=== PATIENT | male | born 1935 | race American Indian/Alaskan Native ===

== ENCOUNTER 2017-04-29 02:16 | Inpatient (IN) | payer BC, MEDICARE ==
[2017-04-29 03:02] LABS: Basophils % (Auto) 0.4 % (0.0-1.8); Eosinophils # (Auto) 0.1 K/mm3 (0.0-0.4); Eosinophils % (Auto) 1.7 % (0.0-4.3); Hematocrit 34.5 % (35.5-45.6); Hemoglobin 11.5 gm/dl (11.8-15.2); Lymphocytes # (Auto) 1.1 K/mm3 (1.2-5.4); Lymphocytes % (Auto) 16.1 % (13.4-35.0); Mean Corpuscular HGB Conc 33 % (32-34); Mean Corpuscular Hemoglobin 28 pg (28-32); Mean Corpuscular Volume 83 fl (84-94); Monocytes # (Auto) 0.6 K/mm3 (0.0-0.8); Monocytes % (Auto) 9.5 % (0.0-7.3); Platelet Count 195 K/mm3 (140-440); Red Blood Count 4.16 M/mm3 (3.65-5.03); Red Cell Distribution Width 16.6 % (13.2-15.2)
[2017-04-29 03:18] LABS: Calcium 8.6 mg/dL (8.4-10.2)
[2017-04-29] MEDS ORDERED: DUONEB *Not for PRN Use IH ONE ×3 (03:32→04:57)
--- NOTE | 2017-04-29 03:56 | XRay Report ---
FINAL REPORT PROCEDURE: XR CHEST ROUTINE 2V TECHNIQUE: PA and lateral chest radiographs were obtained. CPT 49440 HISTORY: Shortness of breath COMPARISON: No prior studies are available for comparison. FINDINGS: Heart: Normal. Mediastinum/Vessels: Normal. Lungs/Pleural space: Atelectasis bilateral lower lungs. Slight left effusion. Bony thorax: No acute osseous abnormality. Other: IMPRESSION: Atelectasis bilateral lower lungs. Slight left effusion.
[2017-04-29 03:57] LABS: Chol/HDL Ratio 2.11 %
[2017-04-29 06:21] LABS: Creatine Kinase MB 2.2 ng/mL (0.0-4.0)
--- NOTE | 2017-04-29 09:11 | Emergency Department Report ---
ED Shortness of Breath HPI - General Chief Complaint: Dyspnea/Respdistress Stated Complaint: FEET ,LEG SWOLLEN Time Seen by Provider: 04/29/17 06:19 Source: patient Mode of arrival: Ambulatory Limitations: Physical Limitation - History of Present Illness Initial Comments: pt. was recently discharged 2 weeks ago from [facility] in [place] where he was admitted for a week for pneumonia,hypokalemia also was found to have an abdominal aneurysm which they told family that it was not big enough to be operated.pt. also complaining of bilateral leg swelling on both legs all the way to jorge l [place] Complaint: shortness of breath Onset/Timin (day) Radiation: other (none) Severity: moderate Consistency: intermittent Improves With: rest Worsens With: exertion Context: recent illness Associated Symptoms: other (bilateral pedal edema) - Related Data Home Medications Medication Instructions Recorded Confirmed Last Taken Atenolol [Tenormin] 25 mg PO DAILY 04/29/17 04/29/17 Unknown amLODIPine [Norvasc] 5 mg PO DAILY 04/29/17 04/29/17 Unknown Allergies Allergy/AdvReac Type Severity Reaction Status Date / Time No Known Allergies Allergy Verified 04/29/17 04:49 ED Review of Systems ROS: Stated complaint: FEET ,LEG SWOLLEN Other details as noted in HPI Comment: All other systems reviewed and negative ED Past Medical Hx - Past Medical History Hx Hypertension: Yes Additional medical history: Hearing Loss, Hypokalemia - Surgical History Past Surgical History?: Yes Additional Surgical History: Bilateral Cataract Surgery - Social History Smoking Status: Never Smoker Substance Use Type: None - Medications Home Medications: Home Medications Medication Instructions Recorded Confirmed Last Taken Type Atenolol [Tenormin] 25 mg PO DAILY 04/29/17 04/29/17 Unknown History amLODIPine [Norvasc] 5 mg PO DAILY 04/29/17 04/29/17 Unknown History ED Physical Exam - General Limitations: Physical Limitation General appearance: alert, in no apparent distress - Head Head exam: Present: atraumatic, normocephalic - Eye Eye exam: Present: normal appearance - ENT ENT exam: Present: mucous membranes moist - Neck Neck exam: Present: normal inspection - Respiratory Respiratory exam: Present: normal lung sounds bilaterally. Absent: respiratory distress - Cardiovascular Cardiovascular Exam: Present: regular rate, normal rhythm, other (bilateral pedal edema). Absent: systolic murmur, diastolic murmur, rubs, gallop - GI/Abdominal GI/Abdominal exam: Present: soft, normal bowel sounds. Absent: tenderness - Rectal Rectal exam: Present: deferred - Extremities Exam Extremities exam: Present: normal inspection, pedal edema (bilateral) - Back Exam Back exam: Present: normal inspection, full ROM - Neurological Exam Neurological exam: Present: alert, oriented X3 - Psychiatric Psychiatric exam: Present: normal affect, normal mood - Skin Skin exam: Present: warm, dry, intact, normal color. Absent: rash ED Course Vital Signs 04/29/17 04/29/17 04/29/17 02:45 04:28 04:37 Temperature 97.8 F 97.7 F Pulse Rate 64 65 Pulse Rate [ Right Middle Lobe] Respiratory 20 20 Rate Respiratory Rate [Right Middle Lobe] Blood Pressure 158/99 Blood Pressure 154/102 [Right] O2 Sat by Pulse 96 94 94 Oximetry 04/29/17 04/29/17 04/29/17 04:59 05:29 06:00 Temperature Pulse Rate 66 Pulse Rate [ 82 84 Right Middle Lobe] Respiratory 20 Rate Respiratory 18 18 Rate [Right Middle Lobe] Blood Pressure Blood Pressure 147/91 [Right] O2 Sat by Pulse 95 Oximetry 04/29/17 04/29/17 07:45 08:15 Temperature Pulse Rate 68 62 Pulse Rate [ Right Middle Lobe] Respiratory 16 21 Rate Respiratory Rate [Right Middle Lobe] Blood Pressure 144/95 147/88 Blood Pressure [Right] O2 Sat by Pulse 94 95 Oximetry ED Medical Decision Making - Lab Data Result diagrams: 04/29/17 02:55 04/29/17 02:55 - EKG Data -: EKG Interpreted by [facility] EKG shows normal: sinus rhythm, axis (normal), intervals (normal), QRS complexes (q waves in V2 ), ST-T waves (NON SPECIFIC ST AND T WAVE CHANGES) Rate: normal (RATE OF 65) - Radiology Data Radiology results: report reviewed Critical care attestation.: If time is entered above; I have spent that time in minutes in the direct care of this critically ill patient, excluding procedure time. ED Disposition Clinical Impression: Acute respiratory distress, NSTEMI (non-ST elevated myocardial infarction) Condition: Stable Referrals: PRIMARY CARE, [Primary Care Provider] - 3-5 Days
[2017-04-29] MEDS ORDERED: BABY ASPIRIN PO ONE (09:28)
[2017-04-29] MEDS ORDERED: PLAVIX PO ONE (09:30)
[2017-04-29] MEDS ORDERED: LASIX IV ONE (09:30)
[2017-04-29] MEDS ORDERED: LOVENOX SUB-Q ONE (09:30)
[2017-04-29] MEDS ORDERED: NITROSTAT SL PRN (10:00)
[2017-04-29] MEDS ORDERED: ZOFRAN IV PRN (10:00)
[2017-04-29] MEDS: LOPRESSOR PO SCH ×2 (11:30→23:23)
[2017-04-29] MEDS: PROTONIX PO SCH (11:30)
[2017-04-29] MEDS: ASPIRIN PO SCH (11:30)
--- NOTE | 2017-04-29 11:49 | History and Physical Report ---
History of Present Illness Date of examination: 04/29/17 Date of admission: 04/29/17 09:38 Chief complaint: SOB with Leg swelling, history from Daughter Radha at bedside because pt is deaf History of present illness: The patient is a 80-year-old man with a history of acquired deafness, chronic kidney disease stage III (he has seen a mounter in the past), chronic hypokalemia and hypertension from home alone who presents with acute onset of severe constant shortness of breath that started yesterday associated with bilateral leg swelling which is new. Patient is deaf and he does not talk. History is from his daughter Radha. Her that he was having problems breathing with minimal activity this morning. He did not report of any chest pains, cough , fevers, nausea or vomiting. He does have bilateral leg swelling that started within the week. He was just discharged from [facility] 2 weeks ago for treatment of pneumonia, TIA, hypokalemia. He was found to have a abdominal aneurysm that was "5" per daughter, which they told here it was not enough to operate. They told her they operate when the aneurysm size is 5.5, they recommended close monitoring. At [facility] also known as [facility] patient did have a CAT scan of the chest. I have requested old records be obtained so that test will not be duplicated. Past medical history: As HPI, 5 cm AA, he denies CHF, he denies diabetes Past surgical history: Bilateral cataracts removal Social history: nonsmoker, no alcohol or drug abuse. only has one child living Radha at bedside, full code Family history: Positive for diabetes and hypertension throughout the family ROS: Constitutional: denies: fever ENT: denies: throat or neck pain Respiratory:+ shortness of breath Cardiovascular: denies: chest pain Endocrine: denies unexplained weight loss or gain Gastrointestinal: denies: abdominal pain, nausea Genitourinary: denies: dysuria Rectal: denies no incontinence, no bleeding, no itching, no discharge Musculoskeletal: denies swelling, myaglia, muscle weakness Skin: denies: rash Neurological: denies: headache Hematological/Lymphatic: denies: easy bleeding or easy bruising Allergic/Immunologic: no urticaria, no allergic rhinitis, no anaphylaxis Psych: denies sadness or hopelessness, SI/HI Medications and Allergies Allergies Allergy/AdvReac Type Severity Reaction Status Date / Time No Known Allergies Allergy Verified 04/29/17 04:49 Home Medications Medication Instructions Recorded Confirmed Last Taken Type Atenolol [Tenormin] 25 mg PO DAILY 04/29/17 04/29/17 Unknown History amLODIPine [Norvasc] 5 mg PO DAILY 04/29/17 04/29/17 Unknown History Active Meds: Active Medications Acetaminophen (Tylenol) 650 mg PO Q6H PRN PRN Reason: Non Cardiac Pain or Temp>100.5 Aspirin (Aspirin) 325 mg PO QDAY [facility] Last Admin: 04/29/17 11:30 Dose: Not Given Atorvastatin Calcium (Lipitor) 20 mg PO QHS [facility] Metoprolol Tartrate (Lopressor) 25 mg PO BID [facility] Last Admin: 04/29/17 11:30 Dose: 25 mg Nitroglycerin (Nitrostat) 0.4 mg SL .Q5MIN PRN PRN Reason: Chest Pain Ondansetron HCl (Zofran) 4 mg IV Q4H PRN PRN Reason: Nausea And Vomiting Pantoprazole Sodium (Protonix) 40 mg PO QDAY [facility] Last Admin: 04/29/17 11:30 Dose: 40 mg Exam - Physical Exam Narrative exam: GEN: WDWN, NAD, AWAKE, ALERT, appears ORIENTATED, follows commands HEENT: NCAT, EOMI, PERRL, OP Clear NECK: supple, no adenopathy, no thyromegaly, + JVD CVS/HEART: irregular irregular, NORMAL S1S2, pulses present bilaterally CHEST/LUNGS: bilateral crackles Symmetrical chest expansion, good air entry bilaterally GI/Abdomen: soft, NTND, good bowel sounds, no guarding or rebound /Bladder: no suprapubic tenderness, no CVA or paraspinal tenderness EXT/Skin: 2+ pitting ble edema, no obvious rash MSK: FROM x 4 Neuro: CN 2-12 grossly intact except hearing loss bilateral, no new focal deficits Psych: calm - Constitutional Vitals: Temp Pulse Resp BP Pulse Ox 97.7 F 62 21 147/88 95 04/29/17 04:28 04/29/17 08:15 04/29/17 08:15 04/29/17 08:15 04/29/17 08:15 Results - Labs CBC & Chem 7: 04/29/17 02:55 04/29/17 02:55 Labs: Abnormal lab results 04/29/1718 04/29/17 Range/Units 02:55 02:55 05:52 Hgb 11.5 L (11.8-15.2) gm/dl Hct 34.5 L (35.5-45.6) % MCV 83 L (84-94) fl RDW 16.6 H (13.2-15.2) % [place] % (Auto) 9.5 H (0.0-7.3) % Lymph # 1.1 L (1.2-5.4) K/mm3 Seg Neutrophils % 72.3 H (40.0-70.0) % D-Dimer (0-234) ng/mlDDU Total Creatine Kinase (55-170) units/L CK-MB (CK-2) Rel Index (0-4) Troponin T 0.051 H 0.042 H (0.00-0.029) ng/mL NT-Pro-B Natriuret Pep (0-900) pg/mL HDL Cholesterol 60 H (40-59) mg/dL 04/29/1718 04/29/17 Range/Units 05:52 09:18 09:18 Hgb (11.8-15.2) gm/dl Hct (35.5-45.6) % MCV (84-94) fl RDW (13.2-15.2) % [place] % (Auto) (0.0-7.3) % Lymph # (1.2-5.4) K/mm3 Seg Neutrophils % (40.0-70.0) % D-Dimer 823.74 H (0-234) ng/mlDDU Total Creatine Kinase 48 L (55-170) units/L CK-MB (CK-2) Rel Index 4.1 H (0-4) Troponin T 0.032 H D (0.00-0.029) ng/mL NT-Pro-B Natriuret Pep 8283 H (0-900) pg/mL HDL Cholesterol (40-59) mg/dL Assessment and Plan Patient is a 80-year-old man with a history of 5cm AAA, acquired deafness, chronic kidney disease stage III (he has seen a mounter in the past), chronic hypokalemia and hypertension who presents to [facility] ED with sob and leg swelling. Admitted for new onset CHF. Recently discharge from [facility] ~2weeks ago for pna/tia/hypokalemia. 2vCXR reported as bilateral atelectasis at bases, slight left pleural effusion -Acute decompensated heart failure, new onset combined: Treat with IV Lasix, potassium, order echocardiogram -Elevated troponin: Consulted cardiology, treat with aspirin statins beta jose and nitroglycerin -Elevated d-dimer: Ordered VQ scan if his creatinine is 1.5, spoke with his nurse to obtain records from [facility], questionable recent CTA -Microcytic anemia: Patient needs colonoscopy if none recently -Suspect chronic kidney disease stage III without a known baseline, for visit here: needs prior records, repeat bmp am -Bilateral atelectasis: Treat with incentive spirometer -DVT GI prophylaxis reviewed 2D ECHO, v/q (delay stress test because on NM)
--- NOTE | 2017-04-29 13:26 | Nuclear Medicine Report ---
LUNG SCAN, VENTILATION AND PERFUSION: History: Chest pain. Findings: Inhalation of Xenon gas demonstrates a normal distribution of the activity throughout both lungs. The wash out phases show no focal retention of activity. After injection of Technetium 99m macroaggregated albumin gamma camera imaging of the lungs in multiple projections demonstrates normal pulmonary contours with a homogeneous distribution of activity. No focal areas of perfusion deficiency are identified. IMPRESSION: Normal study.
[2017-04-29] MEDS: LASIX IV SCH (18:39)
[2017-04-29] MEDS: K-DUR PO SCH (23:24)
[2017-04-30] MEDS: COLACE PO SCH ×3 (04:05→21:56)
[2017-04-30] MEDS: LASIX IV SCH ×3 (04:48→18:09)
[2017-04-30] MEDS: PROTONIX PO SCH (10:34)
[2017-04-30] MEDS: K-DUR PO SCH ×2 (10:34→22:02)
[2017-04-30] MEDS: ASPIRIN PO SCH (10:34)
[2017-04-30] MEDS: LOPRESSOR PO SCH ×2 (10:35→21:56)
--- NOTE | 2017-04-30 12:40 | Consultation ---
History of Present Illness Consult date: 04/30/17 Requesting physician: ALEJANDRO WALKER Consult reason: congestive heart failure, elevated troponin History of present illness: Pt is a 72 YO male with no known significant past medical history. Pt is deaf. Pt is previously unknown to our practice. He presented with c/o progressively worsening BLE edema and SOB for several days prior to arrival. Pt reports that he recently discharged 2 weeks ago from [facility] in [place] where he was admitted for a week for pneumonia, hypokalemia and was also found to have an abdominal aneurysm which they told family that it was not big enough to require surgical intervention. Pt denies chest pain, palpitations, n/v, diaphoresis, dizziness or syncope. Echo done 04/29/2017 shows EF 35-40%, mod LVH, impaired relaxation, LA mild to mod dilated, mild to mod AR, mod to severe MR, mild to mod TR, mod pulm HTN with RVSP 63mmHg. Troponins are minimally elevated and trending down. DDimer was elevated, V/Q scan normal. Past History Past Medical History: other (deaf) Social history: , Lives alone. denies: smoking, alcohol abuse, prescription drug abuse Medications and Allergies Allergies Allergy/AdvReac Type Severity Reaction Status Date / Time No Known Allergies Allergy Verified 04/29/17 04:49 Home Medications Medication Instructions Recorded Confirmed Last Taken Type Atenolol [Tenormin] 25 mg PO DAILY 04/29/17 04/29/17 Unknown History amLODIPine [Norvasc] 5 mg PO DAILY 04/29/17 04/29/17 Unknown History Active Meds: Active Medications Acetaminophen (Tylenol) 650 mg PO Q6H PRN PRN Reason: Non Cardiac Pain or Temp>100.5 Aspirin (Aspirin) 325 mg PO QDAY [facility] Last Admin: 04/30/17 10:34 Dose: 325 mg Atorvastatin Calcium (Lipitor) 20 mg PO QHS [facility] Last Admin: 04/29/17 23:24 Dose: 20 mg Docusate Sodium (Colace) 100 mg PO BID [facility] Last Admin: 04/30/17 10:35 Dose: 100 mg Furosemide (Lasix) 20 mg IV 0600,1800 [facility] Last Admin: 04/30/17 05:10 Dose: Not Given Metoprolol Tartrate (Lopressor) 25 mg PO BID [facility] Last Admin: 04/30/17 10:35 Dose: 25 mg Nitroglycerin (Nitrostat) 0.4 mg SL .Q5MIN PRN PRN Reason: Chest Pain Ondansetron HCl (Zofran) 4 mg IV Q4H PRN PRN Reason: Nausea And Vomiting Pantoprazole Sodium (Protonix) 40 mg PO QDAY [facility] Last Admin: 04/30/17 10:34 Dose: 40 mg Potassium Chloride (K-Dur) 20 meq PO BID [facility] Last Admin: 04/30/17 10:34 Dose: 20 meq Review of Systems Constitutional: no fever, no chills, no sweats Ears, nose, mouth and throat: no ear pain, no nose pain, no sinus pressure, no sinus pain Cardiovascular: edema, shortness of breath, dyspnea on exertion, leg edema, no chest pain, no palpitations, no rapid/irregular heart beat, no syncope, no lightheadedness Respiratory: shortness of breath, dyspnea on exertion, no cough, no congestion, no wheezing, no pain on inspiration Gastrointestinal: no abdominal pain, no nausea, no vomiting, no diarrhea, no constipation, no change in bowel habits Genitourinary Male: no dysuria, no hematuria, no flank pain, no discharge, no urinary frequency, no urinary hesitancy Musculoskeletal: no neck stiffness, no neck pain, no shooting arm pain, no arm numbness/tingling, no low back pain, no shooting leg pain, no leg numbness/ tingling, no redness of joints Integumentary: no rash, no pruritis, no redness, no sores, no wounds Neurological: no head injury, no paralysis, no weakness, no seizures, no syncope Psychiatric: no anxiety Endocrine: no cold intolerance, no heat intolerance Hematologic/Lymphatic: no easy bruising, no easy bleeding, no lymphadenopathy Allergic/Immunologic: no urticaria, no wheezing, no persistent infections Physical Examination Vital Signs Temp Pulse BP Pulse Ox 97.8 F 64 158/99 96 04/29/17 02:45 04/29/17 02:45 04/29/17 02:45 04/29/17 02:45 General appearance: no acute distress HEENT: Positive: PERRL, Normocephaly, Mucus Membranes Moist Neck: Positive: neck supple, trachea midline Cardiac: Positive: Reg Rate and Rhythm, S1/S2 Lungs: Positive: Rales (fine bibasilar) Neuro: Positive: Grossly Intact Abdomen: Positive: Soft. Negative: Tender Skin: Positive: Clear. 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 Initiate lisinopril. Plan for lexiscan MPI stress test in AM to r/o ischemic CMP. NPO after MN. Initiate lovenox for DVT prophylaxis. Assessment and plan reviewed with pt at bedside. The patient has been seen in conjunction with Dr. Coulter who agrees with the assessment and plan of care.
--- NOTE | 2017-04-30 13:52 | Progress Note ---
Assessment and Plan Assessment and plan: Patient is a 80-year-old man with a history of 5cm AAA, acquired deafness, chronic kidney disease stage III (he has seen a oncology radiation physician in the past), chronic hypokalemia and hypertension who presents to [facility] ED with sob and leg swelling. Admitted for new onset CHF. Recently discharge from [facility] ~2weeks ago for pna/tia/hypokalemia. 2vCXR reported as bilateral atelectasis at bases, slight left pleural effusion -Acute decompensated heart failure, new onset combined (confirmed by ECHO) suspect acute on chronic if not ischemic: Treat with IV Lasix, potassium, 2D echocardiogram reviewed -Elevated troponin: Consulted cardiology, treat with aspirin statins beta jose and nitroglycerin -Elevated d-dimer: Ordered VQ scan if his creatinine is 1.5, spoke with his nurse to obtain records from [facility], questionable recent CTA -Microcytic anemia: Patient needs colonoscopy if none recently -Suspect chronic kidney disease stage III without a known baseline, for visit here: needs prior records, repeat bmp am -Bilateral atelectasis: Treat with incentive spirometer -DVT GI prophylaxis reviewed 2D ECHO, v/q (stress test was delayed because because on NM for v/q scan) Lasix is really helping and he is diuresis well. Recheck renal function in am Disposition: stress test am and if negative, cleared by cardiology and renal function stable then d/c tomorrow History Interval history: Patient was seen and examined. Follow-up on current diagnosis of weakness. Overnight uneventful. Patient denies any chest pain, shortness breath, nausea/ vomiting or severe headaches. Imaging, nursing note, chart, labs and old chart reviewed. Discussed with patient. He uses clipboard to communicate. He c/o constipation. Hospitalist Physical - Physical exam Narrative exam: GEN: WDWN, NAD, AWAKE, ALERT, appears ORIENTATED, follows commands HEENT: NCAT, EOMI, PERRL, OP Clear NECK: supple, no adenopathy, no thyromegaly, + JVD CVS/HEART: irregular irregular, NORMAL S1S2, pulses present bilaterally CHEST/LUNGS: bilateral crackles Symmetrical chest expansion, good air entry bilaterally GI/Abdomen: soft, NTND, good bowel sounds, no guarding or rebound /Bladder: no suprapubic tenderness, no CVA or paraspinal tenderness EXT/Skin: 2+ pitting ble edema, no obvious rash MSK: FROM x 4 Neuro: CN 2-12 grossly intact except hearing loss bilateral, no new focal deficits Psych: calm - Constitutional Vitals: Temp Pulse Resp BP Pulse Ox 98.2 F 78 18 157/95 96 04/30/17 08:58 04/30/17 10:35 04/30/17 08:58 04/30/17 10:35 04/30/17 08:58 General appearance: Present: no acute distress Results - Labs CBC & Chem 7: 04/29/17 02:55 04/29/17 02:55 Labs: Laboratory Last Values WBC 6.9 K/mm3 (4.5-11.0) 04/29/17 02:55 RBC 4.16 M/mm3 (3.65-5.03) 04/29/17 02:55 Hgb 11.5 gm/dl (11.8-15.2) L 04/29/17 02:55 Hct 34.5 % (35.5-45.6) L 04/29/17 02:55 MCV 83 fl (84-94) L 04/29/17 02:55 MCH 28 pg (28-32) 04/29/17 02:55 MCHC 33 % (32-34) 04/29/17 02:55 RDW 16.6 % (13.2-15.2) H 04/29/17 02:55 Plt Count 195 K/mm3 (140-440) 04/29/17 02:55 Lymph % (Auto) 16.1 % (13.4-35.0) 04/29/17 02:55 [place] % (Auto) 9.5 % (0.0-7.3) H 04/29/17 02:55 Eos % (Auto) 1.7 % (0.0-4.3) 04/29/17 02:55 Baso % (Auto) 0.4 % (0.0-1.8) 04/29/17 02:55 Lymph # 1.1 K/mm3 (1.2-5.4) L 04/29/17 02:55 [place] # 0.6 K/mm3 (0.0-0.8) 04/29/17 02:55 Eos # 0.1 K/mm3 (0.0-0.4) 04/29/17 02:55 Baso # 0.0 K/mm3 (0.0-0.1) 04/29/17 02:55 Seg Neutrophils % 72.3 % (40.0-70.0) H 04/29/17 02:55 Seg Neutrophils # 5.0 K/mm3 (1.8-7.7) 04/29/17 02:55 D-Dimer 823.74 ng/mlDDU (0-234) H 04/29/17 09:18 Sodium 142 mmol/L (137-145) 04/29/17 02:55 Potassium 3.8 mmol/L (3.6-5.0) 04/29/17 02:55 Chloride 102.9 mmol/L (98-107) 04/29/17 02:55 Carbon Dioxide 25 mmol/L (22-30) 04/29/17 02:55 Anion Gap 18 mmol/L 04/29/17 02:55 BUN 19 mg/dL (9-20) 04/29/17 02:55 Creatinine 1.5 mg/dL (0.8-1.5) 04/29/17 02:55 Estimated GFR 45 ml/min 04/29/17 02:55 BUN/Creatinine Ratio 13 % 04/29/17 02:55 Glucose 92 mg/dL (75-100) 04/29/17 02:55 Calcium 8.6 mg/dL (8.4-10.2) 04/29/17 02:55 Total Creatine Kinase 48 units/L (55-170) L 04/29/17 09:18 CK-MB (CK-2) 2.0 ng/mL (0.0-4.0) 04/29/17 09:18 CK-MB (CK-2) Rel Index 4.1 (0-4) H 04/29/17 09:18 Troponin T 0.032 ng/mL (0.00-0.029) H D 04/29/17 09:18 NT-Pro-B Natriuret Pep 8283 pg/mL (0-900) H 04/29/17 05:52 Triglycerides 73 mg/dL (2-149) 04/29/17 02:55 Cholesterol 127 mg/dL (50-199) 04/29/17 02:55 LDL Cholesterol Direct 68 mg/dL (50-130) 04/29/17 02:55 HDL Cholesterol 60 mg/dL (40-59) H 04/29/17 02:55 Cholesterol/HDL Ratio 2.11 % 04/29/17 02:55
[2017-04-30] MEDS ORDERED: DULCOLAX PR ONE (14:00)
[2017-04-30] MEDS: MIRALAX 3350 PO SCH (16:47)
[2017-04-30] MEDS: ZESTRIL PO SCH (16:53)
[2017-04-30] MEDS: LOVENOX SUB-Q SCH (21:57)
[2017-05-01] MEDS: LASIX IV SCH ×2 (05:36→17:26)
[2017-05-01 05:49] LABS: Hematocrit 34.6 % (35.5-45.6); Hemoglobin 11.7 gm/dl (11.8-15.2); Mean Corpuscular HGB Conc 34 % (32-34); Mean Corpuscular Hemoglobin 28 pg (28-32); Mean Corpuscular Volume 84 fl (84-94); Platelet Count 187 K/mm3 (140-440); Red Blood Count 4.15 M/mm3 (3.65-5.03); Red Cell Distribution Width 16.7 % (13.2-15.2)
[2017-05-01 06:21] LABS: BUN/Creatinine Ratio 12; Blood Urea Nitrogen 14 mg/dL (9-20); Calcium 8.5 mg/dL (8.4-10.2); Hemolysis Index 2
[2017-05-01] MEDS ORDERED: LEXISCAN IV ONE (08:24)
--- NOTE | 2017-05-01 11:20 | Progress Note ---
Assessment and Plan acute systolic heart failure acute respiratory failure nstemit type 2 aaa 5.0 cm htn chol rec: increase lopressor 50mg bid, increase lisinopril 10mg bid, cont iv lasix today, check am labs, possible discharge in am. tried to call daughter phone busy. , infomed the nurse to inform daughter. Subjective Date of service: 05/01/17 Principal diagnosis: sob Interval history: pt has no sob today Objective Vital Signs Temp Pulse Resp BP BP Pulse Ox 05/01/17 08:51 75 162/97 05/01/17 08:50 78 163/100 05/01/17 08:49 78 170/100 05/01/17 08:48 80 152/98 05/01/17 08:47 77 152/98 05/01/17 08:35 63 152/98 05/01/17 05:12 97.2 F L 59 L 18 148/95 96 05/01/17 00:33 98.2 F 52 L 18 158/96 90 04/30/17 22:00 60 04/30/17 20:38 98.9 F 67 18 154/98 92 04/30/17 18:05 98.1 F 68 20 161/97 96 04/30/17 16:53 64 159/98 04/30/17 16:49 60 159/98 95 04/30/17 11:26 97.7 F 58 L 18 144/96 98 - Physical Examination General: No Apparent Distress HEENT: Positive: PERRL, Normocephaly, Mucus Membranes Moist Neck: Positive: neck supple, trachea midline Cardiac: Positive: Reg Rate and Rhythm, Audible Murmur Lungs: Positive: clear to auscultation Neuro: Positive: Grossly Intact Abdomen: Positive: Soft. Negative: Tender Skin: Positive: Clear. Negative: Rash Musculoskeletal: No Pain, Normal Range of Motion Extremities: Absent: edema - Labs and Meds CBC 05/01/17 Range/Units 05:22 WBC 6.2 (4.5-11.0) K/mm3 RBC 4.15 (3.65-5.03) M/mm3 Hgb 11.7 L (11.8-15.2) gm/dl Hct 34.6 L (35.5-45.6) % Plt Count 187 (140-440) K/mm3 Comprehensive Metabolic Panel 05/01/17 Range/Units 05:22 Sodium 143 (137-145) mmol/L Potassium 3.4 L (3.6-5.0) mmol/L Chloride 102.0 (98-107) mmol/L Carbon Dioxide 27 (22-30) mmol/L BUN 14 (9-20) mg/dL Creatinine 1.2 (0.8-1.5) mg/dL Glucose 86 (75-100) mg/dL Calcium 8.5 (8.4-10.2) mg/dL - Imaging and Cardiology EKG: report reviewed, image reviewed Pharmacologic stress test: report reviewed (no sigficant ischemia noted ef 35%) Echo: report reviewed (04/29/2017 shows EF 35-40%, mod LVH, impaired relaxation, LA mild to mod dilated, mild to mod AR, mod to severe MR, mild to mod TR, mod pulm HTN with RVSP 63mmHg) - Telemetry EKG Rhythm: Sinus Rhythm - EKG Sinus rhythms and dysrhythmias: sinus rhythm Chamber hypertrophy or enlargement: left ventricular hypertro
[2017-05-01] MEDS: ASPIRIN PO SCH (11:30)
[2017-05-01] MEDS: COLACE PO SCH ×2 (11:30→21:12)
[2017-05-01] MEDS: K-DUR PO SCH ×2 (11:30→21:11)
[2017-05-01] MEDS: PROTONIX PO SCH (11:30)
[2017-05-01] MEDS: ZESTRIL PO SCH ×3 (11:30→21:13)
[2017-05-01] MEDS: MIRALAX 3350 PO SCH (11:30)
[2017-05-01] MEDS: LOPRESSOR PO SCH ×2 (11:43→21:12)
--- NOTE | 2017-05-01 12:32 | Treadmill Report ---
NUCLEAR IMAGING STUDY REASON FOR STUDY: Abnormal troponin. READING PHYSICIAN: Eliel Crocker MD IMAGING PROTOCOL: The patient received 10 mCi of Technetium 99m Tetrofosmin for resting image and 28 mCi of Technetium 99m Tetrofosmin for stress imaging. The imaging for the whole procedure was completed 30-90 minutes following the initial injection of Technetium 99m tetrofosmin. The SPECT imaging in the 180 degree arc was performed in the right anterior oblique projection. Computerized reconstruction of the images was performed for analysis. IMAGING RESULTS: Cavity is mildly dilated at stress and rest. Distribution of radionuclide is normal in the anterior, inferior, septal, and apical regions. Gated SPECT EF of 35% with moderate global hypokinesis. The patient infused Lexiscan with no EKG changes. SUMMARY: 1. Negative Lexiscan EKG. 2. No significant stress-induced ischemia. 3. Normal myocardial perfusion noted, but Gated SPECT EF of 35%, moderate global hypokinesis. We suggest an echocardiogram to confirm LV dysfunction. JOB# [id number] SHAY/MIGUEL
--- NOTE | 2017-05-01 14:33 | Progress Note ---
Assessment and Plan Acute decompensated heart failure, - Treat with IV Lasix, potassium, 2D echocardiogram reviewed, EF 35-40% - stress test negative Elevated troponin: - Consulted cardiology, treat with aspirin statins beta jose and nitroglycerin - negative stress test HTN - increased lopressor 50mg bid, increased lisinopril 10mg bid, cont iv lasix today Bennett on CKD - likley from decompensated CHF, Cr improving, cont to monitor Brief History Patient is a 80-year-old man with a history of 5cm AAA, acquired deafness who presents to [facility] ED with sob and leg swelling. CXR reported as bilateral atelectasis at bases, slight left pleural effusion Hospitalist Physical GEN: WDWN, NAD, AWAKE, ALERT, appears ORIENTATED, follows commands HEENT: NCAT, EOMI, PERRL, OP Clear NECK: supple, no adenopathy, no thyromegaly, + JVD CVS/HEART: irregular irregular, NORMAL S1S2, pulses present bilaterally CHEST/LUNGS: bilateral crackles Symmetrical chest expansion, good air entry bilaterally GI/Abdomen: soft, NTND, good bowel sounds, no guarding or rebound /Bladder: no suprapubic tenderness, no CVA or paraspinal tenderness EXT/Skin: 2+ pitting ble edema, no obvious rash MSK: FROM x 4 Neuro: CN 2-12 grossly intact except hearing loss bilateral, no new focal deficits Psych: calm Subjective Date of service: 05/01/17 Principal diagnosis: sob Interval history: Patient seen and examined c/o SOB with ambulation Son at bedside, updated Objective - Constitutional Vitals: Vital Signs - 12hr 05/01/17 05/01/17 05/01/17 03:53 05:12 08:35 Temperature 97.2 F L Pulse Rate 53 L 59 L 63 Respiratory 18 Rate Blood Pressure 148/95 152/98 Blood Pressure 148/95 [Right] O2 Sat by Pulse 94 96 Oximetry 05/01/17 05/01/17 05/01/17 08:47 08:48 08:49 Temperature Pulse Rate 77 80 78 Respiratory Rate Blood Pressure 152/98 152/98 170/100 Blood Pressure [Right] O2 Sat by Pulse Oximetry 05/01/17 05/01/17 05/01/17 08:50 08:51 11:50 Temperature 97.7 F Pulse Rate 78 75 66 Respiratory 18 Rate Blood Pressure 163/100 162/97 141/87 Blood Pressure [Right] O2 Sat by Pulse 97 Oximetry - Labs CBC & Chem 7: 05/01/17 05:22 05/01/17 05:22 Labs: Abnormal lab results 05/01/17 05/01/17 Range/Units 05:22 05:22 Hgb 11.7 L (11.8-15.2) gm/dl Hct 34.6 L (35.5-45.6) % RDW 16.7 H (13.2-15.2) % Potassium 3.4 L (3.6-5.0) mmol/L
[2017-05-01] MEDS: LOVENOX SUB-Q SCH (21:11)
[2017-05-02] MEDS: TYLENOL PO PRN (01:02)
[2017-05-02] MEDS: LASIX IV SCH ×2 (05:45→17:14)
[2017-05-02 06:42] LABS: BUN/Creatinine Ratio 10; Blood Urea Nitrogen 13 mg/dL (9-20); Calcium 8.3 mg/dL (8.4-10.2); Hemolysis Index 1
[2017-05-02] MEDS ORDERED: MAGNESIUM SULFATE IV ONE (08:20)
[2017-05-02] MEDS ORDERED: K-DUR PO NR (08:30)
[2017-05-02] MEDS ORDERED: MAGNESIUM SULFATE 1 GM in NACL 0.9% 50 ML IV ONE (09:30)
[2017-05-02] MEDS: COLACE PO SCH ×2 (09:36→23:11)
[2017-05-02] MEDS: K-DUR PO SCH ×2 (09:36→23:11)
[2017-05-02] MEDS: ASPIRIN PO SCH (09:36)
[2017-05-02] MEDS: LOPRESSOR PO SCH ×2 (09:37→23:12)
[2017-05-02] MEDS: PROTONIX PO SCH (09:39)
[2017-05-02] MEDS: MIRALAX 3350 PO SCH (09:39)
[2017-05-02] MEDS: ZESTRIL PO SCH ×2 (09:40→23:11)
--- NOTE | 2017-05-02 11:11 | Progress Note ---
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 Stable cardiac status. Patient may be discharged from a cardiac standpoint. Follow up appointment with Donna Osborn NP in the [place] office on 05/08/17 at 1:00pm. The patient has been seen in conjunction with Dr. Coulter who agrees with the assessment and plan of care. Subjective Date of service: 05/02/17 Principal diagnosis: heart failure Interval history: The patient is resting in bed. No new complaints. Sinus rhythm on the monitor with HR 80s. Objective Last Vital Signs Temp 97.8 F 05/02/17 09:08 Pulse 65 05/02/17 09:37 Resp 18 05/02/17 09:08 BP 154/98 05/02/17 09:37 Pulse Ox 100 05/02/17 09:08 - Physical Examination General: No Apparent Distress HEENT: Positive: PERRL, Normocephaly, Mucus Membranes Moist Neck: Positive: neck supple, trachea midline Cardiac: Positive: Reg Rate and Rhythm, S1/S2 Lungs: Positive: clear to auscultation Neuro: Positive: Grossly Intact Abdomen: Positive: Soft. Negative: Tender Skin: Positive: Clear. Negative: Rash Musculoskeletal: No Pain, Normal Range of Motion Extremities: Absent: edema - Labs and Meds Comprehensive Metabolic Panel 05/02/17 Range/Units 05:45 Sodium 142 (137-145) mmol/L Potassium 3.4 L (3.6-5.0) mmol/L Chloride 102.3 (98-107) mmol/L Carbon Dioxide 29 (22-30) mmol/L BUN 13 (9-20) mg/dL Creatinine 1.3 (0.8-1.5) mg/dL Glucose 81 (75-100) mg/dL Calcium 8.3 L (8.4-10.2) mg/dL - Imaging and Cardiology EKG: report reviewed, image reviewed Echo: report reviewed (04/29/2017 shows EF 35-40%, mod LVH, impaired relaxation, LA mild to mod dilated, mild to mod AR, mod to severe MR, mild to mod TR, mod pulm HTN with RVSP 63mmHg) - Telemetry EKG Rhythm: Sinus Rhythm - EKG Sinus rhythms and dysrhythmias: sinus rhythm Chamber hypertrophy or enlargement: left ventricular hypertro
--- NOTE | 2017-05-02 17:58 | Progress Note ---
Assessment and Plan Acute decompensated heart failure, - Treat with IV Lasix, potassium, 2D echocardiogram reviewed, EF 35-40% - stress test negative Elevated troponin: - Consulted cardiology, treat with aspirin statins beta jose and nitroglycerin - negative stress test HTN - increased lopressor 50mg bid, increased lisinopril 10mg bid, cont iv lasix hypokalemia - likely from diuresis - replace Hypomagnesemia - replace and rechech tomorrow Bennett on CKD - likley from decompensated CHF, Cr improving, cont to monitor Dysphasia - will do speech eval Brief History Patient is a 80-year-old man with a history of 5cm AAA, acquired deafness who presents to [facility] ED with sob and leg swelling. CXR reported as bilateral atelectasis at bases, slight left pleural effusion Hospitalist Physical GEN: WDWN, NAD, AWAKE, ALERT, appears ORIENTATED, follows commands HEENT: NCAT, EOMI, PERRL, OP Clear NECK: supple, no adenopathy, no thyromegaly, + JVD CVS/HEART: irregular irregular, NORMAL S1S2, pulses present bilaterally CHEST/LUNGS: bilateral crackles Symmetrical chest expansion, good air entry bilaterally GI/Abdomen: soft, NTND, good bowel sounds, no guarding or rebound /Bladder: no suprapubic tenderness, no CVA or paraspinal tenderness EXT/Skin: 2+ pitting ble edema, no obvious rash MSK: FROM x 4 Neuro: CN 2-12 grossly intact except hearing loss bilateral, no new focal deficits Psych: calm Subjective Date of service: 05/02/17 Principal diagnosis: heart failure Interval history: Patient seen and examined States his breathing much improved c/o dysphasia on solid food and also states some times pills gets stuck to his throat Objective - Constitutional Vitals: Vital Signs - 12hr 05/02/17 05/02/17 05/02/17 06:02 08:10 08:11 Temperature 98.6 F 97.3 F L Pulse Rate 56 L 56 L Respiratory 18 Rate Blood Pressure 145/98 145/98 Blood Pressure [Right] O2 Sat by Pulse 96 96 Oximetry 05/02/17 05/02/17 05/02/17 09:08 09:37 13:33 Temperature 97.8 F Pulse Rate 60 65 60 Respiratory 18 Rate Blood Pressure 154/98 Blood Pressure 154/98 [Right] O2 Sat by Pulse 100 Oximetry - Labs CBC & Chem 7: 05/01/17 05:22 05/02/17 05:45 Labs: Abnormal lab results 05/02/17 Range/Units 05:45 Potassium 3.4 L (3.6-5.0) mmol/L Calcium 8.3 L (8.4-10.2) mg/dL Magnesium 1.50 L (1.7-2.3) mg/dL
[2017-05-02] MEDS: LOVENOX SUB-Q SCH (23:10)
[2017-05-03] MEDS: TYLENOL PO PRN (01:33)
[2017-05-03] MEDS: LASIX IV SCH ×2 (06:33→17:42)
[2017-05-03] MEDS: COLACE PO SCH ×2 (10:03→21:59)
[2017-05-03] MEDS: LOPRESSOR PO SCH ×2 (10:03→21:58)
[2017-05-03] MEDS: ASPIRIN PO SCH (10:03)
[2017-05-03] MEDS: ZESTRIL PO SCH ×2 (10:04→21:58)
[2017-05-03] MEDS: PROTONIX PO SCH (10:04)
[2017-05-03] MEDS: K-DUR PO SCH ×2 (10:04→21:59)
[2017-05-03] MEDS: MIRALAX 3350 PO SCH (10:05)
[2017-05-03 14:33] LABS: BUN/Creatinine Ratio 11; Blood Urea Nitrogen 14 mg/dL (9-20); Calcium 8.8 mg/dL (8.4-10.2); Hemolysis Index 2
--- NOTE | 2017-05-03 15:17 | Progress Note ---
Assessment and Plan Acute decompensated heart failure, - Treat with IV Lasix, potassium, 2D echocardiogram reviewed, EF 35-40% - stress test negative Elevated troponin: - Consulted cardiology, treat with aspirin statins beta jose and nitroglycerin - negative stress test HTN - increased lopressor 50mg bid, increased lisinopril 10mg bid, cont iv lasix hypokalemia - likely from diuresis - replace Hypomagnesemia - replace and rechech tomorrow Bennett on CKD - likley from decompensated CHF, Cr improving, cont to monitor Dysphasia - speech recommended pured diet and GI consultation - Placed for GI consult for possible EGD Brief History Patient is a 80-year-old man with a history of 5cm AAA, acquired deafness who presents to [facility] ED with sob and leg swelling. CXR reported as bilateral atelectasis at bases, slight left pleural effusion Hospitalist Physical GEN: WDWN, NAD, AWAKE, ALERT, appears ORIENTATED, follows commands HEENT: NCAT, EOMI, PERRL, OP Clear NECK: supple, no adenopathy, no thyromegaly, + JVD CVS/HEART: irregular irregular, NORMAL S1S2, pulses present bilaterally CHEST/LUNGS: bilateral crackles Symmetrical chest expansion, good air entry bilaterally GI/Abdomen: soft, NTND, good bowel sounds, no guarding or rebound /Bladder: no suprapubic tenderness, no CVA or paraspinal tenderness EXT/Skin: 2+ pitting ble edema, no obvious rash MSK: FROM x 4 Neuro: CN 2-12 grossly intact except hearing loss bilateral, no new focal deficits Psych: calm Subjective Date of service: 05/03/17 Principal diagnosis: heart failure Interval history: Patient seen and examined States his breathing much improved c/o dysphasia on solid food and also states some times pills gets stuck to his throat s/p speech eval today, recommended pureed diet Objective - Constitutional Vitals: Vital Signs - 12hr 05/03/17 05/03/17 05/03/17 03:59 07:45 10:03 Temperature 98.6 F 98.1 F Pulse Rate 58 L 60 64 Respiratory 20 18 Rate Blood Pressure 157/104 149/91 Blood Pressure 149/91 [Right] O2 Sat by Pulse 93 96 Oximetry 05/03/17 05/03/17 10:04 12:00 Temperature 98.5 F Pulse Rate 64 61 Respiratory 16 Rate Blood Pressure 149/91 Blood Pressure 128/86 [Right] O2 Sat by Pulse 96 Oximetry - Labs CBC & Chem 7: 05/01/17 05:22 05/03/17 12:41
--- NOTE | 2017-05-03 17:21 | Gastroenterology Consultation ---
History of Present Illness - Reason for Consult Consult date: 05/03/17 Dysphagia Requesting physician: MARLA FRANZ - History of Present Illness The patient is a 81 yo male who is deaf, but who communicates by writing and reading lips (has some/but very limited/hearing). He was admitted with ankle swelling and mild chest discomfort, and dx with CHF; w/u for CAD-VA (stress test ) and PE (VQ scan) were negative. The patient has no N/V/abdominal pain. The patient was seen by ST for what was felt to be difficulty swallowing, but on exam, he c/o food getting stuck in the mid-chest. He thinks this has gone on for about 3-6 months, but can't quantify better than that. A chest Xray did show a small L sided effusion, and a CT chest at [facility] was negative by admitting H/P, in the last few weeks. The patient has no hematemesis or melena , but says he has lost weight (unable to quantify). He has no N/V/anorexia, and wants to eat. His dentition is poor, and part of the dysphagia was felt to be due to poor mastication. He was never a smoker, and denies prior endoscopy ( or colonoscopy). He has no family hx of stomach/esophageal cancer. Past History Past Medical History: heart failure, hypertension, other (deaf, AAA (5cm)) Past Surgical History: cataract removal Social history: , Lives alone. denies: smoking, alcohol abuse, prescription drug abuse Family history: diabetes, hypertension Medications and Allergies Allergies Allergy/AdvReac Type Severity Reaction Status Date / Time No Known Allergies Allergy Verified 04/29/17 04:49 Home Medications Medication Instructions Recorded Confirmed Last Taken Type Atenolol [Tenormin] 25 mg PO DAILY 04/29/17 04/29/17 Unknown History amLODIPine [Norvasc] 5 mg PO DAILY 04/29/17 04/29/17 Unknown History Active Meds: Active Medications Acetaminophen (Tylenol) 650 mg PO Q6H PRN PRN Reason: Non Cardiac Pain or Temp>100.5 Last Admin: 05/03/17 01:33 Dose: 650 mg Aspirin (Aspirin) 325 mg PO QDAY PRASANNA Last Admin: 05/03/17 10:03 Dose: 325 mg Atorvastatin Calcium (Lipitor) 20 mg PO QHS [facility] Last Admin: 05/02/17 23:11 Dose: 20 mg Docusate Sodium (Colace) 100 mg PO BID [facility] Last Admin: 05/03/17 10:03 Dose: 100 mg Enoxaparin Sodium (Lovenox) 40 mg SUB-Q QDAY@2200 [facility] Last Admin: 05/02/17 23:10 Dose: 40 mg Furosemide (Lasix) 20 mg IV 0600,1800 [facility] Last Admin: 05/03/17 06:33 Dose: 20 mg Lisinopril (Zestril) 10 mg PO BID [facility] Last Admin: 05/03/17 10:04 Dose: 10 mg Metoprolol Tartrate (Lopressor) 50 mg PO BID [facility] Last Admin: 05/03/17 10:03 Dose: 50 mg Nitroglycerin (Nitrostat) 0.4 mg SL .Q5MIN PRN PRN Reason: Chest Pain Ondansetron HCl (Zofran) 4 mg IV Q4H PRN PRN Reason: Nausea And Vomiting Pantoprazole Sodium (Protonix) 40 mg PO QDAY [facility] Last Admin: 05/03/17 10:04 Dose: 40 mg Polyethylene Glycol (Miralax 3350) 17 gm PO QDAY [facility] Last Admin: 05/03/17 10:05 Dose: 17 gm Potassium Chloride (K-Dur) 20 meq PO BID [facility] Last Admin: 05/03/17 10:04 Dose: 20 meq I have reviewed and reconciled medications. Review of Systems - Review of Systems All systems: negative (as noted in the HPI.) Exam - Constitutional Vital Signs: Temp Pulse Resp BP Pulse Ox 97.8 F 71 18 156/103 95 05/03/17 15:26 05/03/17 15:26 05/03/17 15:26 05/03/17 15:26 05/03/17 15:26 General appearance: no acute distress - EENT Eyes: PERRL, EOM intact ENT: hearing decreased, poor dentition - Neck Neck: supple, normal ROM - Respiratory Respiratory effort: normal Respiratory: bilateral: CTA - Cardiovascular Heart Sounds: Present: S1 & S2 Extremities: no ischemia Extremity abnormal: edema (1+ pedal edema) - Gastrointestinal General gastrointestinal: Present: soft, non-tender, non-distended - Integumentary Integumentary: Present: clear, warm, dry - Neurologic Neurological: alert and oriented x3 ((communication through writing)) - Labs CBC & Chem 7: 05/01/17 05:22 05/03/17 12:41 Lab Results: Laboratory Results - last 24 hr 05/03/17 12:41 Sodium 139 Potassium 3.7 Chloride 99.0 Carbon Dioxide 27 Anion Gap 17 BUN 14 Creatinine 1.3 Estimated GFR > 60 BUN/Creatinine Ratio 11 Glucose 90 Calcium 8.8 Magnesium 1.70 Assessment and Plan - Patient Problems (1) Dysphagia Current Visit: Yes Status: Acute Plan to address problem: - Patient likely has suboptimal mastication due to teeth, but small L effusion, and recent weight loss, are concerning. - Explained EGD to patient, and though heart disease present, appears only moderate and stable; will proceed to endoscopy tomorrow. - Continue protonix for now. ASA also OK for daily use.
[2017-05-03] MEDS: LOVENOX SUB-Q SCH (21:59)
[2017-05-04] MEDS: LASIX IV SCH ×2 (05:21→18:21)
[2017-05-04] MEDS: LOPRESSOR PO SCH ×3 (10:00→22:08)
--- NOTE | 2017-05-04 15:02 | Progress Note ---
Assessment and Plan Dysphasia - speech recommended pured diet and GI consultation - Placed for GI consult for possible EGD which is scheduled for today - will follow result Acute decompensated heart failure, - Treat with IV Lasix, potassium, 2D echocardiogram reviewed, EF 35-40% - stress test negative Elevated troponin: - Consulted cardiology, treat with aspirin statins beta jose and nitroglycerin - negative stress test HTN - increased lopressor 50mg bid, increased lisinopril 10mg bid, cont lasix hypokalemia - likely from diuresis - replaced Hypomagnesemia - replaced Bennett on CKD - likley from decompensated CHF, Cr improving, cont to monitor Brief History Patient is a 80-year-old man with a history of 5cm AAA, acquired deafness who presents to [facility] ED with sob and leg swelling. CXR reported as bilateral atelectasis at bases, slight left pleural effusion Hospitalist Physical GEN: WDWN, NAD, AWAKE, ALERT, appears ORIENTATED, follows commands HEENT: NCAT, EOMI, PERRL, OP Clear NECK: supple, no adenopathy, no thyromegaly, + JVD CVS/HEART: irregular irregular, NORMAL S1S2, pulses present bilaterally CHEST/LUNGS: bilateral crackles Symmetrical chest expansion, good air entry bilaterally GI/Abdomen: soft, NTND, good bowel sounds, no guarding or rebound /Bladder: no suprapubic tenderness, no CVA or paraspinal tenderness EXT/Skin: 2+ pitting ble edema, no obvious rash MSK: FROM x 4 Neuro: CN 2-12 grossly intact except hearing loss bilateral, no new focal deficits Psych: calm Subjective Date of service: 05/04/17 Principal diagnosis: heart failure Interval history: Patient seen and examined States his breathing much improved plan for EGD today, remained NPO after midnight Objective - Constitutional Vitals: Vital Signs - 12hr 05/04/17 05/04/17 05/04/17 04:48 08:27 10:00 Temperature 98.3 F Pulse Rate 62 60 Pulse Rate [ 60 Right Radial] Respiratory 18 20 Rate Blood Pressure 146/91 154/97 O2 Sat by Pulse 97 Oximetry 05/04/17 12:12 Temperature 97.9 F Pulse Rate 71 Pulse Rate [ Right Radial] Respiratory 16 Rate Blood Pressure 135/85 O2 Sat by Pulse 98 Oximetry - Labs CBC & Chem 7: 05/01/17 05:22 05/03/17 12:41
[2017-05-04] MEDS ORDERED: WATER FOR IRRIG STERILE IR ONE (15:09)
[2017-05-04] MEDS ORDERED: NACL 0.9% 1000 ML 1,000 ML ONE (15:16)
--- NOTE | 2017-05-04 15:26 | Anesthesia Day of Surgery ---
Anesthesia Day of Surgery - Day of Surgery Patient Examined: Yes Patient H&P Reviewed: Yes Patient is NPO: Yes Beta Blockers: Yes Cardiac Clearance: Yes Pulmonary Clearance: No
--- NOTE | 2017-05-04 15:28 | Anesthesia Consultation ---
Anesthesia Consult and Med Hx - Airway Anesthetic Teeth Evaluation: Dentures, Edentulous ROM Head & Neck: Adequate Mental/Hyoid Distance: Adequate Mallampati Class: Class III Intubation Access Assessment: Probably Good - Pulmonary Exam CTA: Yes - Cardiac Exam Cardiac Exam: No Murmur - Pre-Operative Health Status ASA Pre-Surgery Classification: ASA3 Proposed Anesthetic Plan: MAC - Pulmonary Hx Smoking: No Hx Asthma: No Hx Respiratory Symptoms: No SOB: No COPD: No Home Oxygen Therapy: No Hx Pneumonia: Yes Hx Sleep Apnea: No - Cardiovascular System Hx Hypertension: Yes Hx Coronary Artery Disease: Yes (AAA 5 cm ) Hx Heart Attack/AMI: Yes (STEMI) Hx Angina: No Hx Percutaneous Transluminal Coronary Angioplasty (PTCA): No Hx Cardia Arrhythmia: No Hx Pacemaker: No Hx Internal Defibrillator: No Hx Valvular Heart Disease: No Hx Heart Murmur: No Hx Peripheral Vascular Disease: No - Central Nervous System Hx Neuromuscular Disorder: No Hx Seizures: No CVA: No Hx Back Pain: No Hx Psychiatric Problems: No - Gastrointestinal Hx Ulcer: No Hx Gastroesophageal Reflux Disease: No - Endocrine Hx Renal Disease: No Hx End Stage Renal Disease: No Hx Cirrhosis: No Hx Liver Disease: No Hx Insulin Dependent Diabetes: No Hx Non-Insulin Dependent Diabetes: No Hx Thyroid Disease: No Hx Hypothyroidism: No Hx Hyperthyroidism: No - Hematic Hx Anemia: No Hx Sickle Cell Disease: No
[2017-05-04] MEDS ORDERED: DIPRIVAN 10 MG/ML IV ONE (15:32)
--- NOTE | 2017-05-04 15:53 | Post Operative Note ---
Pre-op diagnosis: Dysphagia Post-op diagnosis: other (Hiatal Hernia; no gross obstruction) Findings: 1. Small (<2cm) hiatal hernia 2. Prominant cardiac imprint in esophagus/stomach (known dilated CMP; ?if cause of mild dysphagia) 3. No gross obstruction Procedure: EGD Anesthesia: MAC Surgeon: ALYSSA STATON Estimated blood loss: none Pathology: none Specimen disposition: other (N/A) Condition: stable Disposition: floor (Recs: 1. Mechanical soft diet. 2. Barium swallow with tablet to assess motility if dysphagia progresses. 3. OK to d/c home per our service. Will sign off; please call if needed.)
[2017-05-04] MEDS ORDERED: NACL 0.9% 1000 ML 1,000 ML IV SCH ×2 (16:00)
--- NOTE | 2017-05-04 16:48 | Operative Report ---
PROCEDURE PERFORMED: Esophagogastroduodenoscopy. PREOPERATIVE DIAGNOSIS: Dysphagia. POSTOPERATIVE DIAGNOSES: Hiatal hernia, prominent cardiac imprint in the esophagus. No gross evidence of obstruction or abnormal mucosal tissue. ENDOSCOPIST: Devon Falk M.D. INSTRUMENT: elarm video endoscope not. MEDICATIONS: MAC anesthesia by Anesthesia Services. COMPLICATIONS: No apparent complications. ESTIMATED BLOOD LOSS: Minimal. : None. SPECIMENS: None. IMPLANTS: None. ASSISTANTS: None. CONDITION AT COMPLETION: Stable. TECHNIQUE: The patient was informed of the risks and benefits of the procedure. He signed the informed consent to proceed. He was placed in the left lateral decubitus position. The above sedative medications were given. His vital signs remained stable throughout the procedure. The instrument was advanced from the mouth to the second portion of the duodenum under direct visualization. At that point, the bowel was insufflated and the endoscope was slowly withdrawn. FINDINGS: 1. Small, less than 2 cm, hiatal hernia. 2. 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 3. No evidence of gross obstruction at any part in the upper GI tract with no evidence of abnormal mucosa. RECOMMENDATIONS: 1. Mechanical soft diet. 2. Barium swallow with a tablet to assess motility of the dysphagia progresses. 3. Okay to discharge the patient home per our service. We will sign off. Please call if needed. JOB# [id number] TATYANA/NTS
[2017-05-04] MEDS: ASPIRIN PO SCH (18:04)
[2017-05-04] MEDS: COLACE PO SCH ×2 (18:04→22:09)
[2017-05-04] MEDS: K-DUR PO SCH ×2 (18:05→22:08)
[2017-05-04] MEDS: PROTONIX PO SCH (18:05)
[2017-05-04] MEDS: MIRALAX 3350 PO SCH (18:06)
[2017-05-04] MEDS: ZESTRIL PO SCH ×2 (18:08→22:09)
[2017-05-05] MEDS: LASIX IV SCH (05:35)
[2017-05-05] MEDS: ASPIRIN PO SCH (09:08)
[2017-05-05] MEDS: MIRALAX 3350 PO SCH (09:08)
[2017-05-05] MEDS: K-DUR PO SCH (09:09)
[2017-05-05] MEDS: PROTONIX PO SCH (09:09)
[2017-05-05] MEDS: COLACE PO SCH (09:09)
[2017-05-05] MEDS: ZESTRIL PO SCH (09:09)
[2017-05-05] MEDS: LOPRESSOR PO SCH (09:10)
--- NOTE | 2017-05-05 11:53 | Progress Note ---
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 Patient may be discharged from a cardiac standpoint. Follow up appointment with Donna Osborn NP in the [place] office on 05/08/17 at 1:00pm. Subjective Date of service: 05/05/17 Principal diagnosis: heart failure Interval history: pt has no sob Objective Vital Signs Temp Pulse Resp BP Pulse Ox 05/05/17 10:00 84 18 05/05/17 09:10 70 150/90 05/05/17 09:09 70 150/90 05/05/17 07:16 98.1 F 68 16 152/95 98 05/05/17 05:37 98.6 F 67 18 166/101 98 05/05/17 00:53 98.6 F 65 18 148/97 95 05/04/17 22:00 66 05/04/17 20:03 98.2 F 67 18 135/91 97 05/04/17 18:08 74 120/78 05/04/17 16:32 97.9 F 68 18 154/94 95 05/04/17 16:20 71 15 120/70 96 05/04/17 16:05 69 16 113/58 96 05/04/17 15:50 98.4 F 77 16 105/59 99 05/04/17 15:00 97.5 F L 67 15 153/86 100 05/04/17 12:12 97.9 F 71 16 135/85 98 - Physical Examination General: No Apparent Distress HEENT: Positive: PERRL, Normocephaly, Mucus Membranes Moist Neck: Positive: neck supple, trachea midline Cardiac: Positive: Reg Rate and Rhythm Lungs: Positive: clear to auscultation Neuro: Positive: Grossly Intact Abdomen: Positive: Soft. Negative: Tender Skin: Positive: Clear. Negative: Rash Musculoskeletal: No Pain, Normal Range of Motion Extremities: Absent: edema - Imaging and Cardiology EKG: report reviewed, image reviewed Echo: report reviewed (04/29/2017 shows EF 35-40%, mod LVH, impaired relaxation, LA mild to mod dilated, mild to mod AR, mod to severe MR, mild to mod TR, mod pulm HTN with RVSP 63mmHg) - Telemetry EKG Rhythm: Sinus Rhythm - EKG Sinus rhythms and dysrhythmias: sinus rhythm Chamber hypertrophy or enlargement: left ventricular hypertro
[2017-05-05] MEDS ORDERED: ZESTRIL PO SCH (12:00)
--- NOTE | 2017-05-05 13:02 | Discharge Summary ---
Providers - Providers Date of Admission: 04/29/17 09:38 Date of discharge: 05/05/17 Attending physician: MARLA FRANZ 04/29/17 09:56 Consult to Physician [CONS] Routine Comment: Consulting Provider: AUDELIA ELLINGTON Physician Instructions: Reason For Exam: evaluate for NSTEMI and CHF, elevated troponin 05/01/17 14:33 Physical Therapy Evaluation and Treat [CONS] Routine Comment: Reason For Exam: d/c clearance 05/02/17 10:22 Speech Therapy Evaluation and Treat [CONS] Routine Reason For Exam: dysphagia 05/03/17 12:33 Consult to Physician [CONS] Routine Comment: called GI 1451 06/24/17 Consulting Provider: ANGELA ZELAYA Physician Instructions: Reason For Exam: dysphasia Primary care physician: [employer] Hospitalization Condition: Stable Pertinent studies: Chest x-ray Myocardial perfusion scan Pulmonary perfusion scan Procedures: EGD: 1. Small (<2cm) hiatal hernia 2. Prominant cardiac imprint in esophagus/stomach (known dilated CMP; ?if cause of mild dysphagia) 3. No gross obstruction Hospital course: Brief History Patient is a 80-year-old man with a history of 5cm AAA, acquired deafness who presents to [facility] ED with sob and leg swelling. CXR reported as bilateral atelectasis at bases, slight left pleural effusion. He was admitted with CHF protocol, treated with IV Lasix, beta jose and ACEI. He was also placed on aspirin and statin. 2-D echo showed ejection fraction 35-40%. Cardiology was consulted and myocardial perfusion study was obtained which did not show any stress-induced ischemic change. His blood pressure medications were adjusted. Patient also complained of difficulty in swallowing. He was evaluated by speech therapy and recommended further GI evaluation. Patient was tolerating pured diet. GI was consulted and EGD was performed without any obvious finding of stricture or any esophageal or gastric muscle. He was recommended to continue on mechanical soft diet. If symptoms persist patient might need barium swallow study. Discharge plan and recommendation was discussed with patient's daughter by phone and patient (by written communication). Patient was also advised to follow-up with cardiology and GI in 1-2 weeks. Patient was evaluated by physical therapy and recommended to have a cane on discharge. He was discharged home with his daughter in stable condition. Discharge diagnosis and management: Acute decompensated heart failure, - Treated with IV Lasix, potassium, 2D echocardiogram reviewed, EF 35-40% - stress test negative Elevated troponin: - Consulted cardiology, treat with aspirin statins beta jose and nitroglycerin - negative stress test HTN - cont lopressor 50mg bid, lisinopril 20mg bid, lasix 40mg daily and kcl 10 meq Dysphagia - speech recommended pured diet and GI consultation - GI consulted and s/p EGD on 05/04/17 without any obvious finding - placed on mechanical soft diet on discharge hypokalemia - likely from diuresis - replaced Hypomagnesemia - replaced Bennett on CKD - likley from decompensated CHF, Cr improved Hospitalist Physical GEN: WDWN, NAD, AWAKE, ALERT, appears ORIENTATED, follows commands HEENT: NCAT, EOMI, PERRL, OP Clear NECK: supple, no adenopathy, no thyromegaly, + JVD CVS/HEART: irregular irregular, NORMAL S1S2, pulses present bilaterally CHEST/LUNGS: bilateral crackles Symmetrical chest expansion, good air entry bilaterally GI/Abdomen: soft, NTND, good bowel sounds, no guarding or rebound /Bladder: no suprapubic tenderness, no CVA or paraspinal tenderness EXT/Skin: 2+ pitting ble edema, no obvious rash MSK: FROM x 4 Neuro: CN 2-12 grossly intact except hearing loss bilateral, no new focal deficits Psych: calm Disposition: DC/TX-06 HOME [facility] Time spent for discharge: 34 minutes Core Measure Documentation - Palliative Care Palliative Care/ Comfort Measures: Not Applicable - Core Measures Any of the following diagnoses?: heart failure - Heart Failure Discharge Requirements MARYJO/ARB for LVSD if EF <40%: Yes Beta jose at discharge: Yes Exam - Constitutional Vitals: Temp Pulse Resp BP Pulse Ox 98.1 F 62 16 143/98 98 05/05/17 11:22 05/05/17 11:22 05/05/17 11:22 05/05/17 11:22 05/05/17 11:22 Plan Activity: advance as tolerated, fall precautions Weight Bearing Status: Non-Weight Bearing Diet: low fat, low salt Durable Medical Equipment Needed Upon Discharge: Cane (straight) Follow up with: AUDELIA ELLINGTON MD [Staff Physician] - 7 Days HARPREET LUNDBERG MD [Staff Physician] - 7 Days ALYSSA STATON MD [Staff Physician] - 7 Days PRIMARY CARE, [Primary Care Provider] - 3-5 Days Forms: CardCat PCI D/C Instructions Prescriptions: AtorvaSTATin [Lipitor] 20 mg PO QHS #30 tablet Aspirin EC [Aspirin Enteric Coated TAB] 81 mg PO QDAY #30 tablet. Furosemide [Lasix TAB] 40 mg PO QDAY #30 tablet Lisinopril [Zestril TAB] 20 mg PO BID #60 tablet Metoprolol [Lopressor TAB] 50 mg PO BID #60 tablet Nitroglycerin [Nitrostat] 0.4 mg SL .Q5MIN PRN #30 tablet PRN Reason: Chest Pain Potassium Chloride [K-Dur] 10 meq PO QDAY #30 tablet
[2017-05-05 14:11] LABS: Calcium 8.6 mg/dL (8.4-10.2)
[2017-05-05 14:42] VITALS: BP 136/88
[2017-05-06] MEDS ORDERED: K-DUR PO SCH (10:00)
[2017-05-06] MEDS ORDERED: LASIX PO SCH (10:00)
== END 2017-05-05 16:30 | disposition home or self-care (01) | DRG 280 ==
LOC: ED 02:16 → 4A 09:38
PROVIDERS: ADMIT Internal Medicine; ATTEND Internal Medicine
PROC: 0DJ08ZZ Inspection of Upper Intestinal Tract, Via Natural or Artificial Opening Endoscopic (ICD-10-PCS; principal; 2017-05-04)
DX: I13.0 Hypertensive heart and chronic kidney disease with heart failure and stage 1 through stage 4 chronic kidney disease, or unspecified chronic kidney disease (principal); I21.A1 Myocardial infarction type 2; J96.00 Acute respiratory failure, unspecified whether with hypoxia or hypercapnia; I50.43 Acute on chronic combined systolic (congestive) and diastolic (congestive) heart failure; N17.9 Acute kidney failure, unspecified; I25.2 Old myocardial infarction; K44.9 Diaphragmatic hernia without obstruction or gangrene; N18.3 Chronic kidney disease, stage 3 (moderate); E87.6 Hypokalemia; H91.90 Unspecified hearing loss, unspecified ear; D50.9 Iron deficiency anemia, unspecified; I27.20 Pulmonary hypertension, unspecified; Z60.2 Problems related to living alone; I71.4 Abdominal aortic aneurysm, without rupture; E78.5 Hyperlipidemia, unspecified; E83.42 Hypomagnesemia; R47.02 Dysphasia; Z83.3 Family history of diabetes mellitus; Z98.42 Cataract extraction status, left eye; Z98.41 Cataract extraction status, right eye; Z90.2 Acquired absence of lung [part of]; Z79.899 Other long term (current) drug therapy; Z82.49 Family history of ischemic heart disease and other diseases of the circulatory system
CPT/HCPCS: 36415; 71046; 78452; 78582; 80048; 80061; 82550; 82553; 83735; 83880; 84484; 85025; 85027; 85379; 93005; 93010; 93017; 93306; 94640; 96372; 96374; A9270-GY; A9502; A9540; A9558; G8996-GN; G8997-GN; J1650; J1940; J2704; J2785; J3475; J7030

== ENCOUNTER 2017-05-19 09:17 | Emergency (ER) | payer BC, MEDICARE ==
[2017-05-19 09:55] LABS: Basophils % (Auto) 0.5 % (0.0-1.8); Eosinophils # (Auto) 0.1 K/mm3 (0.0-0.4); Eosinophils % (Auto) 1.5 % (0.0-4.3); Hematocrit 36.9 % (35.5-45.6); Hemoglobin 12.1 gm/dl (11.8-15.2); Lymphocytes % (Auto) 15.6 % (13.4-35.0); Mean Corpuscular HGB Conc 33 % (32-34); Mean Corpuscular Hemoglobin 27 pg (28-32); Mean Corpuscular Volume 84 fl (84-94); Monocytes # (Auto) 0.5 K/mm3 (0.0-0.8); Monocytes % (Auto) 7.4 % (0.0-7.3); Platelet Count 240 K/mm3 (140-440); Red Blood Count 4.41 M/mm3 (3.65-5.03); Red Cell Distribution Width 16.8 % (13.2-15.2)
[2017-05-19 09:58] LABS: BUN/Creatinine Ratio 13; Blood Urea Nitrogen 15 mg/dL (9-20); Calcium 9.3 mg/dL (8.4-10.2); Hemolysis Index 1
--- NOTE | 2017-05-19 10:32 | Emergency Department Report ---
ED General Adult HPI - General Chief complaint: Neck Pain/Injury Stated complaint: NECK/BEHIND EAR SWELLING Time Seen by Provider: 05/19/17 10:28 Source: patient Mode of arrival: Ambulatory Limitations: Other - History of Present Illness Initial comments: This is a 81-year-old deaf but not mute patient who was recently in this hospital for exacerbation of CHF. He is not on any new medications since his discharge in April. He is said to have had swelling behind his left ear which completely resolved by the time he came to the emergency department. On examination the patient actually points to the right and states "gland". He is found to have a mildly tender submandibular lymph node on the right. During the episode of swelling he had no difficulty in swallowing or dyspnea. He recently had endoscopy for dysphagia which was normal. The family member called an insurance helpline and he was referred to the emergency department. -: Gradual, minutes(s), hour(s) - Related Data Previous Rx's Medication Instructions Recorded Last Taken Type Aspirin EC [Aspirin Enteric Coated 81 mg PO QDAY #30 tablet. 05/05/17 Unknown Rx TAB] AtorvaSTATin [Lipitor] 20 mg PO QHS #30 tablet 05/05/17 Unknown Rx Docusate Sodium [Colace CAP] 100 mg PO BID capsule 05/05/17 Unknown Rx Furosemide [Lasix TAB] 40 mg PO QDAY #30 tablet 05/05/17 Unknown Rx Lisinopril [Zestril TAB] 20 mg PO BID #60 tablet 05/05/17 Unknown Rx Metoprolol [Lopressor TAB] 50 mg PO BID #60 tablet 05/05/17 Unknown Rx Nitroglycerin [Nitrostat] 0.4 mg SL .Q5MIN PRN #30 tablet 05/05/17 Unknown Rx Potassium Chloride [K-Dur] 10 meq PO QDAY #30 tablet 05/05/17 Unknown Rx traMADol [Ultram] 50 mg PO Q6HR PRN #7 tablet 05/19/17 Unknown Rx Allergies Allergy/AdvReac Type Severity Reaction Status Date / Time No Known Allergies Allergy Verified 04/29/17 04:49 ED Review of Systems ROS: Stated complaint: NECK/BEHIND EAR SWELLING Other details as noted in HPI Constitutional: denies: chills, fever Eyes: denies: eye pain, eye discharge, vision change ENT: as per HPI (no tongue or oral or throat swelling nor symptoms no dysphagia) . denies: ear pain, throat pain Respiratory: denies: cough, shortness of breath, wheezing Cardiovascular: denies: chest pain, palpitations Endocrine: no symptoms reported Gastrointestinal: denies: abdominal pain, nausea, diarrhea Genitourinary: denies: urgency, dysuria Musculoskeletal: denies: back pain, joint swelling Skin: denies: rash, lesions Neurological: denies: headache, weakness, paresthesias Psychiatric: denies: anxiety, depression Hematological/Lymphatic: denies: easy bleeding, easy bruising ED Past Medical Hx - Past Medical History Hx Hypertension: Yes Hx Heart Attack/AMI: Yes (STEMI) Hx Congestive Heart Failure: Yes Hx Liver Disease: No Hx Renal Disease: No Hx Sickle Cell Disease: No Hx Seizures: No Hx Asthma: No Hx COPD: No Additional medical history: Hearing Loss, Hypokalemia - Surgical History Hx Pacemaker: No Hx Internal Defibrillator: No Additional Surgical History: Bilateral Cataract Surgery - Social History Smoking Status: Never Smoker Substance Use Type: None - Medications Home Medications: Home Medications Medication Instructions Recorded Confirmed Last Taken Type Aspirin EC [Aspirin Enteric Coated 81 mg PO QDAY #30 tablet.dr 05/05/17 Unknown Rx TAB] AtorvaSTATin [Lipitor] 20 mg PO QHS #30 tablet 05/05/17 Unknown Rx Docusate Sodium [Colace CAP] 100 mg PO BID capsule 05/05/17 Unknown Rx Furosemide [Lasix TAB] 40 mg PO QDAY #30 tablet 05/05/17 Unknown Rx Lisinopril [Zestril TAB] 20 mg PO BID #60 tablet 05/05/17 Unknown Rx Metoprolol [Lopressor TAB] 50 mg PO BID #60 tablet 05/05/17 Unknown Rx Nitroglycerin [Nitrostat] 0.4 mg SL .Q5MIN PRN #30 tablet 05/05/17 Unknown Rx Potassium Chloride [K-Dur] 10 meq PO QDAY #30 tablet 05/05/17 Unknown Rx traMADol [Ultram] 50 mg PO Q6HR PRN #7 tablet 05/19/17 Unknown Rx ED Physical Exam - General Limitations: Other General appearance: alert, in no apparent distress - Head Head exam: Present: atraumatic, normocephalic - Eye Eye exam: Present: normal appearance, PERRL, EOMI. Absent: scleral icterus - ENT ENT exam: Present: normal exam, normal orophraynx, mucous membranes moist, TM's normal bilaterally - Neck Neck exam: Present: normal inspection, lymphadenopathy (there is a solitary slightly enlarged and tender lymph node right submandibular near the ankle). Absent: meningismus, full ROM, thyromegaly - Respiratory Respiratory exam: Present: normal lung sounds bilaterally. Absent: respiratory distress - Cardiovascular Cardiovascular Exam: Present: regular rate, normal rhythm. Absent: systolic murmur, diastolic murmur, rubs, gallop - GI/Abdominal GI/Abdominal exam: Present: soft, normal bowel sounds. Absent: distended, tenderness, guarding, rebound, rigid - Rectal Rectal exam: Present: deferred - Extremities Exam Extremities exam: Present: normal inspection - Back Exam Back exam: Present: normal inspection - Neurological Exam Neurological exam: Present: alert, oriented X3, CN II-XII intact. Absent: motor sensory deficit - Psychiatric Psychiatric exam: Present: normal affect, normal mood - Skin Skin exam: Present: warm, dry, intact, normal color. Absent: rash ED Course Vital Signs 05/19/17 09:25 Temperature 97.5 F L Pulse Rate 65 Respiratory 16 Rate Blood Pressure 176/99 O2 Sat by Pulse 95 Oximetry - Reevaluation(s) Reevaluation #1: At this juncture I do not find an indication for further imaging at this time in the emergency department. The family was directed to follow-up with the primary care physician. Should the lymph node enlargement or persist further diagnostic evaluation is necessary. I discussed this with the family. As far as the left neck swelling there is no swelling whatsoever now. The etiology cannot now be determined. They should return for any recurrent swelling as needed. I wouldn't yet conclude that this was secondary to an jayson inhibitor as there are just no findings of swelling now. 05/19/17 10:58 05/19/17 11:01 ED Medical Decision Making - Lab Data Result diagrams: 05/19/17 09:35 05/19/17 09:35 Laboratory Results - last 24 hr 05/19/17 05/19/17 09:35 09:35 WBC 6.6 RBC 4.41 Hgb 12.1 Hct 36.9 MCV 84 MCH 27 L MCHC 33 RDW 16.8 H Plt Count 240 Lymph % (Auto) 15.6 [place] % (Auto) 7.4 H Eos % (Auto) 1.5 Baso % (Auto) 0.5 Lymph # 1.0 L [place] # 0.5 Eos # 0.1 Baso # 0.0 Seg Neutrophils % 75.0 H Seg Neutrophils # 5.0 Sodium 143 Potassium 3.7 Chloride 103.3 Carbon Dioxide 27 Anion Gap 16 BUN 15 Creatinine 1.2 Estimated GFR > 60 BUN/Creatinine Ratio 13 Glucose 73 L Calcium 9.3 Critical care attestation.: If time is entered above; I have spent that time in minutes in the direct care of this critically ill patient, excluding procedure time. ED Disposition Clinical Impression: Lymphadenopathy of head and neck, History of neck swelling Disposition: TO HOME OR SELFCARE Is pt being admited?: No Does the pt Need Aspirin: No Condition: Stable Instructions: Lymphadenopathy (ED) Additional Instructions: Further evaluation and follow-up of the swollen gland is recommended with her primary care provider. Sometimes lisinopril can cause swelling but this does not usually go away quickly on its own. Do not take any further lisinopril if there is any recurrent swelling. Return to the emergency department if there is any recurrent swelling. Follow-up with the primary care provider. If necessary I have written a prescription for something for pain. Prescriptions: traMADol [Ultram] 50 mg PO Q6HR PRN #7 tablet PRN Reason: Pain Referrals: usual, primary care [Other] - 2-3 Days Time of Disposition: 11:03
--- NOTE | 2017-05-19 10:51 | XRay Report ---
AP AND LATERAL SOFT TISSUES OF THE NECK: History: Neck pain and swelling. The contour of the upper airway appears within normal limits. The epiglottis is not enlarged. No prevertebral soft tissue swelling is apparent. No mass density or foreign body is evident. Advanced multilevel cervical spondylosis and poor dentition are noted. IMPRESSION: No abnormality identified.
[2017-05-19] MEDS ORDERED: ULTRAM PO ONE (11:48)
[2017-05-19 11:52] VITALS: BP 165/81
== END 2017-05-19 11:53 | disposition home or self-care (01) ==
LOC: ED 09:17
DX: I89.0 Lymphedema, not elsewhere classified (principal); I11.0 Hypertensive heart disease with heart failure; I50.9 Heart failure, unspecified; I25.2 Old myocardial infarction; Z79.82 Long term (current) use of aspirin
CPT/HCPCS: 36415; 70360; 80048; 85025; 99284

== ENCOUNTER 2018-10-24 12:53 | Outpatient (CLI) | payer BC, MEDICARE ==
[2018-10-24 13:20] LABS: Hematocrit 41.5 % (35.5-45.6); Hemoglobin 13.6 gm/dl (11.8-15.2); Mean Corpuscular HGB Conc 33 % (32-34); Mean Corpuscular Volume 82 fl (84-94); Platelet Count 182 K/mm3 (140-440); Red Blood Count 5.05 M/mm3 (3.65-5.03)
[2018-10-24 13:51] LABS: Albumin 4.4 g/dL (3.9-5); Calcium 9.8 mg/dL (8.4-10.2); Uric Acid 9.3 mg/dL (3.5-7.6)
== END 2018-10-24 12:54 | disposition home or self-care (01) ==
LOC: LAB 12:53
PROVIDERS: ATTEND Internal Medicine Nephrology
DX: I13.0 Hypertensive heart and chronic kidney disease with heart failure and stage 1 through stage 4 chronic kidney disease, or unspecified chronic kidney disease (principal); N18.3 Chronic kidney disease, stage 3 (moderate); D63.1 Anemia in chronic kidney disease; N28.1 Cyst of kidney, acquired; N17.9 Acute kidney failure, unspecified; R60.9 Edema, unspecified; E87.6 Hypokalemia
CPT/HCPCS: 36415; 80048; 82040; 82306; 83970; 84100; 84550; 85027

== ENCOUNTER 2019-03-26 14:17 | Outpatient (CLI) | payer BC ==
[2019-03-26 14:39] LABS: Basophils % (Auto) 0.6 % (0.0-1.8); Eosinophils % (Auto) 1.2 % (0.0-4.3); Hematocrit 39.2 % (35.5-45.6); Hemoglobin 13.1 gm/dl (11.8-15.2); Lymphocytes # (Auto) 0.9 K/mm3 (1.2-5.4); Lymphocytes % (Auto) 22.6 % (13.4-35.0); Mean Corpuscular HGB Conc 33 % (32-34); Mean Corpuscular Volume 85 fl (84-94); Monocytes # (Auto) 0.4 K/mm3 (0.0-0.8); Monocytes % (Auto) 9.2 % (0.0-7.3); Platelet Count 222 K/mm3 (140-440); Red Blood Count 4.63 M/mm3 (3.65-5.03); Red Cell Distribution Width 15.3 % (13.2-15.2)
[2019-03-26 15:18] LABS: Albumin 4.1 g/dL (3.9-5); Calcium 9.7 mg/dL (8.4-10.2)
== END 2019-03-26 14:18 | disposition home or self-care (01) ==
LOC: LAB 14:17
PROVIDERS: ATTEND Internal Medicine Nephrology
DX: N18.3 Chronic kidney disease, stage 3 (moderate) (principal)
CPT/HCPCS: 36415; 80048; 82040; 83970; 84100; 84550; 85025

== ENCOUNTER 2019-07-14 12:57 | Outpatient (CLI) | payer BC, MEDICARE ==
[2019-07-14 13:33] LABS: Basophils % (Auto) 0.3 % (0.0-1.8); Eosinophils % (Auto) 0.7 % (0.0-4.3); Hematocrit 42.9 % (35.5-45.6); Hemoglobin 14.1 gm/dl (11.8-15.2); Lymphocytes # (Auto) 0.7 K/mm3 (1.2-5.4); Lymphocytes % (Auto) 17.5 % (13.4-35.0); Mean Corpuscular HGB Conc 33 % (32-34); Mean Corpuscular Volume 85 fl (84-94); Monocytes # (Auto) 0.3 K/mm3 (0.0-0.8); Monocytes % (Auto) 7.3 % (0.0-7.3); Platelet Count 182 K/mm3 (140-440); Red Blood Count 5.06 M/mm3 (3.65-5.03); Red Cell Distribution Width 16.1 % (13.2-15.2)
[2019-07-14 14:06] LABS: Albumin 4.6 g/dL (3.9-5); Calcium 9.9 mg/dL (8.4-10.2)
[2019-07-19 11:57] LABS: Vitamin D, 25-OH, D2 <4 ng/mL
== END 2019-07-14 12:58 | disposition home or self-care (01) ==
LOC: LAB 12:57
PROVIDERS: ATTEND Internal Medicine Nephrology
DX: I12.9 Hypertensive chronic kidney disease with stage 1 through stage 4 chronic kidney disease, or unspecified chronic kidney disease (principal); N18.3 Chronic kidney disease, stage 3 (moderate); D63.1 Anemia in chronic kidney disease; N28.1 Cyst of kidney, acquired; N17.9 Acute kidney failure, unspecified; R60.9 Edema, unspecified; E87.6 Hypokalemia
CPT/HCPCS: 36415; 80048; 82040; 82306; 83970; 84100; 85025

== ENCOUNTER 2020-01-29 13:17 | Outpatient (CLI) | payer BC, MEDICARE ==
[2020-01-29 14:10] LABS: Basophils % (Auto) 0.6 % (0.0-1.8); Eosinophils # (Auto) 0.1 K/mm3 (0.0-0.4); Eosinophils % (Auto) 1.9 % (0.0-4.3); Hematocrit 37.4 % (35.5-45.6); Hemoglobin 12.4 gm/dl (11.8-15.2); Lymphocytes # (Auto) 0.7 K/mm3 (1.2-5.4); Lymphocytes % (Auto) 19.7 % (13.4-35.0); Mean Corpuscular HGB Conc 33 % (32-34); Mean Corpuscular Volume 85 fl (84-94); Monocytes # (Auto) 0.3 K/mm3 (0.0-0.8); Monocytes % (Auto) 8.4 % (0.0-7.3); Platelet Count 218 K/mm3 (140-440); Red Blood Count 4.39 M/mm3 (3.65-5.03); Red Cell Distribution Width 14.9 % (13.2-15.2)
[2020-01-29 14:31] LABS: Albumin 3.7 g/dL (3.9-5); Calcium 9.5 mg/dL (8.4-10.2)
== END 2020-01-29 13:18 | disposition home or self-care (01) ==
LOC: LAB 13:17
PROVIDERS: ATTEND Internal Medicine Nephrology
DX: N18.30 Chronic kidney disease, stage 3 unspecified (principal)
CPT/HCPCS: 36415; 80048; 82040; 83970; 84100; 85025

== ENCOUNTER 2020-02-17 14:49 | Outpatient (CLI) | payer BC, MEDICARE ==
[2020-02-17 15:56] LABS: Calcium 9.1 mg/dL (8.4-10.2)
== END 2020-02-17 14:50 | disposition home or self-care (01) ==
LOC: LAB 14:49
PROVIDERS: ATTEND Internal Medicine Nephrology
DX: I12.9 Hypertensive chronic kidney disease with stage 1 through stage 4 chronic kidney disease, or unspecified chronic kidney disease (principal); N18.30 Chronic kidney disease, stage 3 unspecified; N17.9 Acute kidney failure, unspecified; R60.9 Edema, unspecified; D63.1 Anemia in chronic kidney disease; Z91.19 Patient's noncompliance with other medical treatment and regimen
CPT/HCPCS: 36415; 80048; 83735

== ENCOUNTER 2020-07-28 14:07 | Outpatient (CLI) | payer BC, MEDICARE | END 2020-07-28 14:08 | disposition home or self-care (01) | LOC: LAB 14:07 | PROVIDERS: ATTEND Internal Medicine Nephrology | DX: I12.9 Hypertensive chronic kidney disease with stage 1 through stage 4 chronic kidney disease, or unspecified chronic kidney disease (principal); N17.9 Acute kidney failure, unspecified; N18.30 Chronic kidney disease, stage 3 unspecified; D63.1 Anemia in chronic kidney disease; N28.1 Cyst of kidney, acquired; Z91.19 Patient's noncompliance with other medical treatment and regimen | CPT/HCPCS: 36415; 80048; 83735 ==